=== PATIENT | female | born 1995 ===

== ENCOUNTER 2025-03-26 08:17 | Inpatient (IN) ==
--- NOTE | 2025-03-25 15:29 | Anesthesiology Consultation ---
Date of Service March 25, 2025 Assessment & Plan (1) Encounter for pre-operative examination: - Per learning technologist on 03/25/25: No known infectious disease contacts, current infectious disease symptoms in past 10 days or COVID positive test result in the past 30 days. Chart Review Chart Review: entry analyst initiated History Surgery Operation Date: 03/26/25 10:00 Proposed Procedures p Section - Sandra Day MD Height/Weight Height: 5 ft 4 in Weight: 90 kg Allergies Allergy/AdvReac Type Severity Reaction Status Date / Time bee venom protein (honey bee) Allergy Severe Anaphylaxis Verified 03/25/25 15:33 Medications Home Medications Medication Instructions Recorded Confirmed Last Taken breast pump #1 ea 03/10/25 03/25/25 Unknown alprazolam 0.5 mg tablet (Xanax) 0.5 mg PO DAILY 03/19/25 03/25/25 Unknown Magnesium Vitamin 1 tab PO HS PRN . 03/25/25 03/25/25 Unknown ferrous sulfate 325 mg (65 mg 325 mg PO DAILY 03/25/25 03/25/25 Unknown iron) tablet (iron) vit no.95-ferrous 1 tab PO DAILY 03/25/25 03/25/25 Unknown fumarate 28 mg-folic acid 800 mcg tablet () sertraline 100 mg tablet (Zoloft) 100 mg PO HS 03/25/25 03/25/25 Unknown sertraline 25 mg tablet (Zoloft) 25 mg PO HS 03/25/25 03/25/25 Unknown Past Medical History Medical History (Updated 03/25/25 @ 15:52 by Sarahi Carey PA-C) Anemia mild "during only" ADHD Hx of migraines Gestational hypertension History of PCOS History of chicken pox Depression with anxiety Past Family History Family History (Updated 03/25/25 @ 15:39 by Maria Eugenia Boone RN) Sister Crohn's disease Father Arthritis Kidney disease Other No family history of adverse response to anesthesia Denies family history of Ovarian cancer Breast cancer Colorectal cancer Past Surgical History Surgical History (Updated 03/25/25 @ 15:39 by Maria Eugenia Boone RN) [employer] teeth removed Social History Smoking Status: Never smoker Do You Dip or Chew Tobacco: No Hx Alcohol Use: No Hx Substance Use: No Physical Exam Vital Signs Last Vital Signs Temp 36.9 C 03/26/25 08:24 Pulse 86 03/26/25 09:15 Resp 20 03/26/25 08:24 BP 147/92 H 03/26/25 09:15 Lab Results Anesthesia Preop Results Results Anesthesia Widget: WBC 8.98 K/ul (4.8-10.8) 03/19/25 Hgb 11.1 g/dl (12.0-16.0) L 03/19/25 Hct 30.7 % (37.0-47.0) L 03/19/25 Plt 218 K/uL (130-400) 03/19/25 Na 135 mmol/L (136-145) L 03/19/25 K 4.0 mmol/L (3.5-5.1) 03/19/25 Cl 107 mmol/L (98-107) 03/19/25 CO2 21 mmol/L (21-32) 03/19/25 BUN 5 mg/dl (6-23) L 03/19/25 Creat 0.54 mg/dl (0.6-1.2) L 03/19/25 Glucose Level 70 mg/dl (70-99(Fasting)) 03/19/25 Blood Type O Positive 03/10/25 Antibody Screen NEGATIVE 03/10/25
[2025-03-26] MEDS: LACTATED RINGER'S 1,000 ML IV SCH ×2 (08:49→16:32)
[2025-03-26] MEDS ORDERED: GLYCOPYRROLATE 0.2 MG/ML VIAL ONE (08:52)
[2025-03-26] MEDS ORDERED: OXYTOCIN 10 UNITS/ML VIAL ONE (09:07)
[2025-03-26] MEDS ORDERED: DEXAMETHASONE SOD INJ 4 MG/ML VIAL ONE (09:07)
[2025-03-26] MEDS ORDERED: ONDANSETRON INJ 2 MG/ML 2 ML VIAL ONE (09:07)
[2025-03-26] MEDS ORDERED: MoRPHine SULFATE PF 1 MG/ML 10 ML AMP/VIAL ONE (09:08)
[2025-03-26] MEDS: ACETAMINOPHEN 500 MG TAB PO SCH (09:40)
[2025-03-26 10:28] LABS: Hematocrit (blood only) 31.7 % (37.0-47.0); Hemoglobin 11.2 g/dl (12.0-16.0); Mean Corpuscular Hemoglobin 31.1 pg (25.0-34.0); Mean Corpuscular Volume 88.1 fL (80.0-100.0); Platelet Count 198 K/uL (130-400); RDW Standard Deviation 39.7 fL (36.4-46.3); Red Blood Count 3.60 M/uL (4.20-5.40); White Blood Count 10.44 K/ul (4.8-10.8)
[2025-03-26 10:42] LABS: Alanine Aminotransferase 12.0 U/L (7-52); Albumin Globulin Ratio 1.1 (0.9-2); Alkaline Phosphatase 93.0 U/L (34-104); Anion Gap 9.0 (3-11); Bilirubin,Total 0.4 mg/dl (0.2-1.0); Blood Urea Nitrogen 8.0 mg/dl (6-23); Calcium 9.0 mg/dl (8.6-10.3); Carbon Dioxide 22.0 mmol/L (21-32); Chloride 107.0 mmol/L (98-107); Creatinine Clr Calc Pharmacy 147.8 ml/min; Globulin 2.9 gm/dl (2.5-4.0); Glucose 71.0 mg/dl (70-99(Fasting)); Potassium 4.0 mmol/L (3.5-5.1); Sodium 138.0 mmol/L (136-145); Total Protein 6.0 gm/dl (6.0-8.3)
[2025-03-26] MEDS ORDERED: LACTATED RINGER'S 1,000 ML IV SCH (10:45)
--- NOTE | 2025-03-26 10:53 | History & Physical Report ---
Date of Service March 26, 2025 Assessment & Plan (1) Breech presentation: (2) Gestational hypertension: Plan 29 yo G1 at 37 2/7 wga presents for planned primary CS for ghtn, breech Mild range BPs, had a severe that has since improved, labs wnl. Pt was very anxious, will continue to monitor Fetus cat 1 Reviewed consent for CS yesterday - Discussed indications, risks, benefits, alternatives with risks including infection, bleeding, injury to adjacent structures (bowel, bladder, ureters, blood vessels, nerves, baby), possible need for blood transfusion and/or life saving hysterectomy, VTE. Consent reviewed in detail w/ pt and signed after all questions answered to her satisfaction. 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 03/25/25 03/25/25 History ferrous sulfate 325 mg (65 mg 325 mg PO DAILY 03/25/25 03/25/25 History iron) tablet (iron) vit no.95-ferrous 1 tab PO DAILY 03/25/25 03/25/25 History fumarate 28 mg-folic acid 800 mcg tablet () sertraline 100 mg tablet (Zoloft) 100 mg PO HS 03/25/25 03/25/25 History sertraline 25 mg tablet (Zoloft) 25 mg PO HS 03/25/25 03/25/25 History Patient History Medical History (Updated 03/25/25 @ 15:52 by Sarahi Carey PA-C) Anemia mild "during only" ADHD Hx of migraines Gestational hypertension History of PCOS History of chicken pox Depression with anxiety Surgical History (Updated 03/25/25 @ 15:39 by Maria Eugenia Boone RN) [place] teeth removed Family History (Updated 03/25/25 @ 15:39 by Maria Eugenia Boone RN) Sister Crohn's disease Father Arthritis Kidney disease Other No family history of adverse response to anesthesia Denies family history of Ovarian cancer Breast cancer Colorectal cancer Social History Smoking Status: Never smoker Tobacco Type: E-cigarettes / Vaping Smoking End Date: vaping hx but quit June 2024; Second Hand Exposure: No; Do You Dip or Chew Tobacco: No; Hx Alcohol Use: No Hx Substance Use: No Preferred Language: Nepali Combining Machine Operator Required: No Beliefs That Will Affect Care: None marital status: marital status details: Ayan Austin (35) [phone] Current Living Situation: Spouse Current Living Situation Comment: lives with , 2 dogs current occupational status: employed 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 Other Information That Helps Us Care for You: No Feels Safe at Home: Yes Safety Concerns: Feels Safe At This Time Assistive Devices: None Physical Exam Genitourinary: OB Exam Abdomen: + breech (on US) OB Exam Monitor Tracing: + external FHT monitor used, + external uterine monitor used and + category I (120/mod/+accel/-decel) Results & Data Vital Signs (Past 12 Hours) Vital Signs Temp Pulse Resp BP O2 Del Method 03/26/25 10:45 93 H 03/26/25 10:45 148/95 H 03/26/25 10:35 81 03/26/25 10:35 140/89 03/26/25 10:25 94 H 03/26/25 10:25 149/91 H 03/26/25 10:16 85 03/26/25 10:16 151/92 H 03/26/25 10:07 87 03/26/25 10:07 165/97 H 03/26/25 09:55 81 03/26/25 09:55 164/103 H 03/26/25 09:46 91 H 03/26/25 09:46 171/103 H 03/26/25 09:35 95 H 03/26/25 09:35 159/106 H 03/26/25 09:26 88 03/26/25 09:26 154/101 H 03/26/25 09:15 86 03/26/25 09:15 147/92 H 03/26/25 09:06 87 03/26/25 09:06 153/96 H 03/26/25 09:00 98.4 F 20 03/26/25 09:00 98.4 F 20 Room Air 03/26/25 08:56 82 143/95 H 03/26/25 08:24 98.4 F 93 H 20 154/102 H Laboratory Results Initial OB Labs 09/10/24 Blood Type & RH Antibody Screen HCT/HGB 37.1/13.0 Platelets 268 Hep C IgG 13yrs+ Old non reactive Pap Test Chlamydia not detected Gonorrhea not detected Rubella immune RPR non-reactive Urine Culture/Screen HBsAg non reactive HIV negative MCV 87.3 Ultrasound Genetic OB Labs 10/14/24 CF negative SMA negative Panorama negative Materni T21 Quad Screen MASFP Nuchal Translucency 24-28 Week OB Labs 01/18/25 HCT/HGB 33.9/11.4 Diabetes Screen (1hr) 140 3HR GTT (if screen abnormal) 01/20/25 [id number] Antibody Screen Urine Culture/Screen Diagnostic Findings anterior plac Coding Level of Care Code None Diagnoses Breech presentation O32.1XX0 Gestational hypertension O13.9
[2025-03-26] MEDS: CITRIC ACID/SODIUM CITRATE 15 ML UDC PO SCH (10:59)
[2025-03-26 11:54] LABS: Protein Creatinine Ratio Urine 0.3 (0-0.2); Total Protein Urine Random 21.2 mg/dl (0-11.9)
[2025-03-26] MEDS ORDERED: PHENYLEPHRINE HCL 25 MG/250 ML NSS IV ONE (12:19)
--- NOTE | 2025-03-26 12:28 | Operative Report ---
Post Operative Report Pre & Post Diagnosis Operation Date: 03/26/25 10:00 Pre-Op Diagnosis: Single Intrauterine at 37 2/7 wga, Gestational Hypertension, Breech Presentation Post-Op Diagnosis: Single Intrauterine at 37 2/7 wga, Gestational Hypertension, Breech Presentation I identified the patient and participated in the time-out.: Yes Procedure Operation Date: 03/26/25 10:00 Actual Procedures p Primary Low Transverse Section - Sandra Day MD Surgeon Sandra Day MD Refrigeration Installer MD Lucille Quantitative Blood Loss (QBL) 381 Findings Consistent with Post-Op Diagnosis Normal appearing uterus, bilateral fallopian tubes and ovaries. Viable female with APGARs of 7 and 8 at 1 and 5 minutes, respectively Fluids UOP 150cc clear urine by georges catheter Specimens Placenta, cord blood Drains Georges draining clear urine Anesthesia Type Spinal Complications none Disposition Accompanied Patient To Recovery: Yes Disposition: L&D Indications 29 yo G1 at 37 2/7 wga presents for primary CS for gestational hypertension and breech presentation Description of Procedure The patient was taken to the operating room after consents were ensured. The patient was properly identified. Spinal anesthesia was obtained without difficulty. The patient was placed in a dorsal supine position with left lateral tilt, then prepped and draped in normal sterile fashion. Surgical time out was performed. Antibiotics were given for prophylaxis. Anesthesia was tested to ensure adequate surgical levels. Pfannenstiel skin incision was performed and carried down to the underlying fascia with a knife. The fascia was then nicked in the midline and extended laterally with pickups and Boyer scissors. Superior portion of the fascia was grasped with Kochers x2 and elevated off the underlying rectus muscles using blunt dissection. Inferior portion of the fascia was then grasped with Trevor clamps x2 and also elevated off the underlying muscles with blunt dissection. Midline was identified. The peritoneum was then entered and extended to provide adequate room for delivery of baby. A hand was inserted into the abdomen, uterus was noted to be clear of adhesions. Bladder blade was inserted, bladder flap was created in the usual fashion. A low transverse uterine incision was made in the uterus and extended bluntly in a superior to inferior fashion. Amniotomy was made with clear fluid at the time of rupture. feet were delivered atraumatically through the hysterotomy. breech and torso were delivered to the level of the scapula. Arms were swept across the chest atraumatically. head delivered spontaneously afterward. Nose and mouth were bulb suctioned on the surgical field. The cord was double clamped and cut, baby was handed off to awaiting pediatrics staff. Cord segment and blood were obtained. Placenta was then manually removed from the uterus. The uterus was exteriorized. Several passes were made inside the uterus to remove the remaining membranes. Attention was then turned to the hysterotomy, which was then closed with a running locked suture of 0 Vicryl on a CTX needle. An imbricating layer was then performed using 0-Monocryl. There was noted to be good hemostasis. The posterior cul-de-sac was then inspected and cleaned of clot and debris. The hysterotomy was again inspected and noted to be hemostatic. The uterus was returned to the abdomen. The right and left pericolic gutters were cleaned of all clot and debris. The hysterotomy was again noted to be hemostatic. Space of Retzius was noted to be hemostatic. The fascia was then closed with a running suture of 0 Vicryl on a CT1 needle. Subcutaneous tissue was copiously irrigated and noted to be hemostatic. Subcutaneous tissue was re-approximated using 2-0 plain gut. The skin was then closed with a running suture of 3-0 Monocryl in a subcuticular fashion. At termination of the procedure, fundal pressure was applied and a moderate amount of lochia was expressed. Pressure dressing was applied to the patient. She tolerated the procedure well. All sponge, needle, instrument counts were correct x 2. I attest to the content of the Intraoperative Record and any orders documented therein. Any exceptions are noted below. OB Procedure Charges 97994
[2025-03-26] MEDS ORDERED: BENZOCAINE 20% SPRY 85 APPLN/85 GM CAN EXT PRN (12:34)
[2025-03-26] MEDS ORDERED: HYDROCORTISONE ACETATE 25 MG SUPP PR PRN (12:34)
[2025-03-26] MEDS ORDERED: MAGNESIUM HYDROXIDE SUSP 30 ML UDC PO PRN (12:34)
[2025-03-26] MEDS ORDERED: CALCIUM CARBONATE 500 MG CHEWABLE TAB PO PRN (12:34)
[2025-03-26] MEDS ORDERED: MEPERIDINE HCL 25 MG/ML CARP/VIAL IV PRN (12:48)
[2025-03-26] MEDS ORDERED: diphenhydrAMINE 50 MG/ML VIAL IV PRN (12:48)
[2025-03-26] MEDS ORDERED: NALOXONE HCL 0.08 MG in SYRINGE 1.8 ML IV PRN (12:48)
[2025-03-26] MEDS ORDERED: ONDANSETRON INJ 2 MG/ML 2 ML VIAL IV PRN (12:48)
[2025-03-26] MEDS ORDERED: METOCLOPRAMIDE HCL 20 MG in SODIUM CHLORIDE 0.9% 50 ML IV PRN (12:48)
[2025-03-26] MEDS ORDERED: NALOXONE HCL 0.4 MG/1 ML VIAL/CARP IV PRN (12:48)
[2025-03-26] MEDS ORDERED: NALBUPHINE HCL INJ 10 MG/ML AMP IV PRN (12:48)
[2025-03-26] MEDS ORDERED: PROMETHAZINE 6.25 MG/50.25 ML BAG IV PRN (12:48)
[2025-03-26] MEDS ORDERED: HYDROmorphone INJ 0.5 MG/0.5 ML SYR IV PRN (12:48)
[2025-03-26] MEDS ORDERED: LACTATED RINGER'S 500 ML IV PRN (12:48)
[2025-03-26] MEDS ORDERED: NALOXONE HCL 1 MG in SODIUM CHLORIDE 0.9% 1,000 ML IV PRN (12:48)
--- NOTE | 2025-03-26 12:50 | Anesthesiology Progress Note ---
Date of Service March 26, 2025 Anesthesia Post Procedure Vital Signs Vital Signs: Temp Pulse Resp BP Pulse Ox O2 Del Method 03/26/25 12:46 97 03/26/25 12:46 91 H 03/26/25 12:44 82 03/26/25 12:44 158/98 H 03/26/25 12:41 98 03/26/25 12:41 83 03/26/25 12:36 98 03/26/25 12:36 88 03/26/25 12:34 100 H 03/26/25 12:34 165/103 H 03/26/25 12:31 98 03/26/25 12:31 87 03/26/25 12:26 97 03/26/25 12:26 86 03/26/25 12:24 87 03/26/25 12:24 167/100 H 03/26/25 12:21 98 03/26/25 12:21 81 03/26/25 10:55 90 03/26/25 10:55 143/97 H 03/26/25 10:45 93 H 03/26/25 10:45 148/95 H 03/26/25 10:35 81 03/26/25 10:35 140/89 03/26/25 10:25 94 H 03/26/25 10:25 149/91 H 03/26/25 10:16 85 03/26/25 10:16 151/92 H 03/26/25 10:07 87 03/26/25 10:07 165/97 H 03/26/25 09:55 81 03/26/25 09:55 164/103 H 03/26/25 09:46 91 H 03/26/25 09:46 171/103 H 03/26/25 09:35 95 H 03/26/25 09:35 159/106 H 03/26/25 09:26 88 03/26/25 09:26 154/101 H 03/26/25 09:15 86 03/26/25 09:15 147/92 H 03/26/25 09:06 87 03/26/25 09:06 153/96 H 03/26/25 09:00 36.9 C 20 03/26/25 09:00 36.9 C 20 Room Air 03/26/25 08:56 82 143/95 H 03/26/25 08:24 36.9 C 93 H 20 154/102 H Transfer of Care Handoff Completed per policy Notes Mental Status: alert / awake / arousable Patient Amnestic to Procedure: Yes Nausea / Vomiting: adequately controlled Pain: adequately controlled Airway Patency, RR, SpO2: stable & adequate BP & HR: stable & adequate Hydration State: stable & adequate Neuraxial Anesthesia: was administered and sensory block is resolving Anesthetic Complications: no major complications apparent and Pt Satisfied with anesthetic care
[2025-03-26] MEDS ORDERED: DC INTRASPINAL MORPHINE SCH (13:00)
[2025-03-26] MEDS ORDERED: NO NARCOTICS OR SEDATIVES SCH (13:00)
[2025-03-26] MEDS: KETOROLAC 30 MG/ML VIAL IV SCH (13:24)
[2025-03-26] MEDS: LABETALOL HCL IV 5 MG/ML 20ML IV STA (15:19)
[2025-03-26] MEDS: SIMETHICONE 80 MG CHEW PO SCH (15:24)
[2025-03-26] MEDS: MAGNESIUM SULFATE / WTR 40 GM/1,000 ML BAG IV SCH (15:26)
--- NOTE | 2025-03-26 15:31 | Communication Note ---
Date of Service: March 26, 2025 Nursing noted elevated bps in immediate pp period however pt had been the whole time. had pt pause , bp was severe range with persistent repeat. Labs this am were wnl except UP:C was 0.3, new from 0.2 last week. Given now persistent severe range with appropriately taken bp and up:c, would meet criteria for pre-eclampsia w/ severe features. Discussed this with patient, rec IV labetalol 20mg now and starting magnesium. Reviewed reasoning/indication, pt agreeable. Will keep georges catheter in
[2025-03-26] MEDS: DIPHTHER/TETAN/PERTUS Vaccine (Tdap, Adol/Adult) 0.5mL IM ONE (16:31)
[2025-03-26] MEDS: MoRPHine SULFATE PF 1 MG/ML 10 ML AMP/VIAL INT SPINAL ONE (16:32)
[2025-03-26] MEDS: MAG SULFATE 4GM BOLUS FROM BAG IV ONE (16:55)
[2025-03-26] MEDS ORDERED: LABETALOL HCL 200 MG TAB PO SCH ×2 (17:00→21:00)
[2025-03-26] MEDS: LABETALOL HCL 200 MG TAB PO SCH (17:20)
[2025-03-26] MEDS: SODIUM CHLORIDE 0.9% 1,000 ML IV SCH (17:32)
[2025-03-26] MEDS: LABETALOL HCL 100 MG TAB ONE (18:48)
[2025-03-26] MEDS: OXYTOCIN 20 UNITS/LR 1,002 ML IV SCH (19:01)
[2025-03-26] MEDS: ACETAMINOPHEN 325 MG TAB PO SCH (19:27)
[2025-03-26] MEDS: SERTRALINE HCL 100 MG TABLET PO SCH (20:42)
[2025-03-26] MEDS: SERTRALINE HCL 50 MG TABLET PO SCH (20:42)
[2025-03-26] MEDS: DOCUSATE SODIUM 100 MG CAP PO SCH (20:42)
[2025-03-27 06:35] LABS: Hematocrit (blood only) 28.1 % (37.0-47.0); Hemoglobin 9.8 g/dl (12.0-16.0); Mean Corpuscular Hemoglobin 30.8 pg (25.0-34.0); Mean Corpuscular Volume 88.4 fL (80.0-100.0); Platelet Count 193 K/uL (130-400); RDW Standard Deviation 39.3 fL (36.4-46.3); Red Blood Count 3.18 M/uL (4.20-5.40); White Blood Count 14.26 K/ul (4.8-10.8)
[2025-03-27] MEDS ORDERED: PROMETHAZINE 12.5 MG/50.5 ML BAG IV PRN (06:49)
[2025-03-27] MEDS ORDERED: diphenhydrAMINE Capsule 25 MG CAP PO PRN (06:49)
[2025-03-27] MEDS ORDERED: diphenhydrAMINE 50 MG/ML VIAL IV PRN (06:49)
[2025-03-27] MEDS ORDERED: HYDROmorphone INJ 0.5 MG/0.5 ML SYR IV PRN (06:49)
[2025-03-27] MEDS ORDERED: ONDANSETRON INJ 2 MG/ML 2 ML VIAL IV PRN (06:49)
[2025-03-27 06:55] LABS: Alanine Aminotransferase 12.0 U/L (7-52); Albumin Globulin Ratio 1.3 (0.9-2); Alkaline Phosphatase 82.0 U/L (34-104); Anion Gap 8.0 (3-11); Bilirubin,Total 0.3 mg/dl (0.2-1.0); Blood Urea Nitrogen 8.0 mg/dl (6-23); Calcium 7.4 mg/dl (8.6-10.3); Carbon Dioxide 24.0 mmol/L (21-32); Chloride 99.0 mmol/L (98-107); Creatinine Clr Calc Pharmacy 161.0 ml/min; Globulin 2.4 gm/dl (2.5-4.0); Glucose 81.0 mg/dl (70-99(Fasting)); Potassium 4.1 mmol/L (3.5-5.1); Sodium 131.0 mmol/L (136-145); Total Protein 5.4 gm/dl (6.0-8.3)
[2025-03-27] MEDS: PRENATAL VITAMIN 1 TAB PO SCH (07:14)
[2025-03-27] MEDS: FERROUS SULFATE 325 MG TAB PO SCH (07:14)
--- NOTE | 2025-03-27 08:06 | Obstetrical Progress Note ---
Date of Service March 27, 2025 Assessment & Plan (1) Gestational hypertension: (2) Pre-eclampsia in period: (3) examination following delivery: Plan Pt is 29 yo post- day 1 s/p CS at 37w2d. Pt was started on Mg at 1500 on 03/26 due to pre-eclampsia with severe features following CS delivery. Pt's BP has reduced to within normal range konstantin night and controlled on Mg and Labetalol 200mg. - Continue IV Mg Sulfate at 75mls/hr until 1500 - Continue mIVF LR at 125mls/hr while NPO - Continue labetalol 200mg BID as needed for BP control - Pain control with tylenol, ibuprofen and Toradol - Plan to remove georges and begin out of bed activity following completion of 24 hr of IV Mg - Close monitoring of BP's - Resume diet after 1500 - Encourage breast feeding Admission and Anticipated Discharge Date Admission Date: March 26, 2025 Supervising Physician Co-Signing Physician Notes Resident Physician Supervision Note: I interviewed and examined the patient. Discussed with Dr. Covarrubias and agree with findings and plan as documented in the note. Any exceptions or clarifications are listed here: POD1 s/p pCS c/b pre-eclampsia w/ severe features, currently on mag and labetalol 200mg po bid. VSS, exam benign and wnl, incision c/d/i. Continue mag until 24hrs complete, labetalol 200mg bid. UOP adequate Documented By: Sandra Day MD Subjective Pt is 29 yo post- day 1 s/p CS at 37w2d. Pt was started on Mg at 1500 on 03/26 due to pre-eclampsia with severe features following CS delivery. Ambulation:No Voiding:georges in place Passing gas: yes BM: no Diet tolerance: NPO until 1500 Lochia:bloody, no clots Feeding type: breast Current pain level: 5 /10 improved with Tylenol and Toradol Resting comfortably this morning in NAD. Pt reports her extremity swelling appears improved. Denies [place] OCA, CP, SOB, N/V/D, LE pain. Review of Systems Review of Systems: As per HPI Physical Exam Constitutional: WD/WN, vitals as above Respiratory: normal respiratory effort, lungs clear to auscultation Cardiovascular: Rate/Rhythm: regular rate and regular rhythm Heart Sounds: no click, no gallop and no murmur Extremities: + edema (Non pitting at bilateral ankles and hands.) Gastrointestinal (Abdomen): normal bowel sounds, soft, nontender, no hepatosplenomegaly Uterine fundus firm and at level of umbilicus Skin: Lower abdominal incision is clean, dry and well approximated. Steri strips in place. No drainage Neurologic: PERRL, EOMI, accommodation nl, no face palsy, no dysarthria Moving all 4 extremities on command Psychiatric: A+Ox3, euthymic affect Results & Data Vital Signs (Past 12 Hours) Vital Signs Temp Pulse Resp BP Pulse Ox 03/27/25 08:01 91 H 98 03/27/25 07:56 88 98 03/27/25 07:51 90 98 03/27/25 07:46 87 98 03/27/25 07:41 92 H 98 03/27/25 07:36 88 99 03/27/25 07:31 90 98 03/27/25 07:26 88 97 03/27/25 07:22 86 136/86 03/27/25 07:21 92 H 98 03/27/25 07:16 89 98 03/27/25 07:11 91 H 98 03/27/25 07:06 89 97 03/27/25 07:01 90 97 03/27/25 06:56 88 97 03/27/25 06:51 92 H 97 03/27/25 06:46 90 97 03/27/25 06:44 86 125/83 03/27/25 06:41 85 98 03/27/25 06:36 84 97 03/27/25 06:35 16 97 03/27/25 06:35 16 03/27/25 06:31 95 H 93 03/27/25 06:26 88 98 03/27/25 06:21 84 96 03/27/25 06:16 86 94 03/27/25 06:11 85 95 03/27/25 06:06 87 96 03/27/25 06:01 95 H 98 03/27/25 05:56 89 94 03/27/25 05:51 89 94 03/27/25 05:46 91 H 95 03/27/25 05:41 90 94 03/27/25 05:36 87 95 03/27/25 05:31 89 95 03/27/25 05:30 16 95 06 05:30 16 03/27/25 05:26 84 96 03/27/25 05:21 97 03/27/25 05:21 83 06 05:21 82 135/86 03/27/25 05:16 86 98 03/27/25 05:11 88 98 03/27/25 05:06 84 98 03/27/25 05:01 87 98 03/27/25 04:56 86 97 03/27/25 04:51 86 98 03/27/25 04:46 95 H 96 03/27/25 04:45 36.5 C 16 03/27/25 04:45 16 97 03/27/25 04:45 16 03/27/25 04:41 91 H 97 03/27/25 04:36 89 98 03/27/25 04:31 92 H 98 03/27/25 04:26 105 H 96 03/27/25 04:21 88 98 03/27/25 04:20 86 134/89 03/27/25 04:16 86 98 03/27/25 04:11 93 H 98 03/27/25 04:06 91 H 98 03/27/25 04:01 86 98 03/27/25 03:56 89 97 03/27/25 03:51 82 95 03/27/25 03:46 83 95 03/27/25 03:41 79 95 03/27/25 03:36 84 96 03/27/25 03:31 90 96 03/27/25 03:30 16 94 03/27/25 03:30 16 03/27/25 03:26 86 94 03/27/25 03:21 95 03/27/25 03:21 88 06 03:21 82 125/77 03/27/25 03:16 84 94 03/27/25 03:11 83 94 03/27/25 03:06 85 93 03/27/25 03:01 84 94 03/27/25 02:56 85 94 03/27/25 02:51 85 94 03/27/25 02:46 87 94 03/27/25 02:41 87 94 03/27/25 02:36 89 94 03/27/25 02:31 88 93 03/27/25 02:30 16 94 03/27/25 02:30 16 03/27/25 02:26 89 94 03/27/25 02:21 95 03/27/25 02:21 90 03/27/25 02:21 92 H 114/69 03/27/25 02:16 90 94 03/27/25 02:11 88 94 03/27/25 02:06 91 H 94 03/27/25 02:01 89 94 03/27/25 01:56 88 97 03/27/25 01:51 88 95 03/27/25 01:46 92 H 98 03/27/25 01:41 97 H 96 03/27/25 01:36 95 H 97 03/27/25 01:31 95 H 97 03/27/25 01:26 104 H 95 03/27/25 01:21 96 H 96 03/27/25 01:20 16 96 03/27/25 01:20 18 03/27/25 01:20 99 H 127/76 03/27/25 01:16 95 H 96 03/27/25 01:11 93 H 96 03/27/25 01:06 98 H 96 03/27/25 01:01 94 H 99 03/27/25 00:56 101 H 97 03/27/25 00:51 95 H 96 03/27/25 00:46 91 H 98 03/27/25 00:41 89 95 03/27/25 00:36 100 H 96 03/27/25 00:31 91 H 95 03/27/25 00:30 16 96 03/27/25 00:30 16 03/27/25 00:27 97 H 121/74 03/27/25 00:26 92 H 91 03/27/25 00:22 91 H 91 03/27/25 00:21 93 H 92 03/27/25 00:16 92 03/27/25 00:16 92 H 03/27/25 00:16 91 H 91 03/27/25 00:11 93 H 92 03/27/25 00:09 93 H 91 03/27/25 00:06 94 H 91 03/27/25 00:03 93 H 91 03/27/25 00:01 94 H 90 03/26/25 23:57 91 03/26/25 23:57 93 H 03/26/25 23:56 91 03/26/25 23:56 93 H 06/27/25 23:51 91 03/26/25 23:51 93 H 03/26/25 23:51 91 03/26/25 23:51 93 H 03/26/25 23:46 91 03/26/25 23:46 94 H 03/26/25 23:46 91 03/26/25 23:46 95 H 03/26/25 23:41 93 03/26/25 23:41 92 H 03/26/25 23:36 95 03/26/25 23:36 94 H 03/26/25 23:31 96 03/26/25 23:31 92 H 03/26/25 23:30 16 93 03/26/25 23:30 16 03/26/25 23:27 93 H 03/26/25 23:27 120/83 03/26/25 23:26 95 03/26/25 23:26 91 H 03/26/25 23:21 94 03/26/25 23:21 93 H 03/26/25 23:16 94 03/26/25 23:16 92 H 03/26/25 23:11 94 03/26/25 23:11 93 H 03/26/25 23:06 96 03/26/25 23:06 93 H 03/26/25 23:01 96 03/26/25 23:01 95 H 03/26/25 22:56 97 03/26/25 22:56 101 H 03/26/25 22:51 98 03/26/25 22:51 99 H 03/26/25 22:46 96 03/26/25 22:46 97 H 03/26/25 22:41 97 03/26/25 22:41 97 H 03/26/25 22:36 96 03/26/25 22:36 100 H 03/26/25 22:31 96 03/26/25 22:31 103 H 03/26/25 22:30 36.7 C 16 03/26/25 22:30 16 94 03/26/25 22:30 18 03/26/25 22:27 99 H 03/26/25 22:27 125/83 03/26/25 22:26 96 03/26/25 22:26 104 H 03/26/25 22:21 96 03/26/25 22:21 105 H 03/26/25 22:16 94 03/26/25 22:16 112 H 03/26/25 22:15 18 94 03/26/25 22:15 18 03/26/25 22:11 94 03/26/25 22:11 110 H 03/26/25 22:06 94 03/26/25 22:06 113 H 03/26/25 22:01 95 03/26/25 22:01 101 H 03/26/25 21:56 94 03/26/25 21:56 100 H 03/26/25 21:51 95 03/26/25 21:51 105 H 03/26/25 21:46 95 03/26/25 21:46 104 H 03/26/25 21:41 94 03/26/25 21:41 104 H 03/26/25 21:36 95 03/26/25 21:36 114 H 03/26/25 21:31 92 03/26/25 21:31 109 H 03/26/25 21:27 102 H 03/26/25 21:27 133/84 03/26/25 21:26 95 03/26/25 21:26 106 H 03/26/25 21:21 97 03/26/25 21:21 104 H 03/26/25 21:16 93 03/26/25 21:16 111 H 03/26/25 21:16 91 03/26/25 21:16 110 H 03/26/25 21:15 18 97 03/26/25 21:15 18 03/26/25 21:11 94 03/26/25 21:11 97 H 03/26/25 21:06 96 03/26/25 21:06 101 H 03/26/25 21:01 96 03/26/25 21:01 102 H 03/26/25 20:56 92 03/26/25 20:56 101 H 03/26/25 20:51 94 03/26/25 20:51 104 H 03/26/25 20:46 93 03/26/25 20:46 107 H 03/26/25 20:41 93 03/26/25 20:41 111 H 03/26/25 20:36 94 03/26/25 20:36 96 H 03/26/25 20:31 95 03/26/25 20:31 102 H 03/26/25 20:27 99 H 03/26/25 20:27 140/90 03/26/25 20:26 95 03/26/25 20:26 101 H 03/26/25 20:21 93 03/26/25 20:21 102 H 03/26/25 20:16 93 03/26/25 20:16 100 H 03/26/25 20:15 18 96 03/26/25 20:15 18 03/26/25 20:11 94 03/26/25 20:11 101 H 03/26/25 20:06 94 03/26/25 20:06 106 H Resident Activity Tracking Resident Involvement: Resident Care Provided Care Provided: Adult Hospital Medicine
[2025-03-27] MEDS: LACTATED RINGER'S 1,000 ML IV SCH (08:08)
[2025-03-27] MEDS: KETOROLAC 30 MG/ML VIAL IV PRN (14:50)
[2025-03-27] MEDS: IBUPROFEN 600 MG TAB PO SCH (14:54)
[2025-03-28] MEDS ORDERED: Nursing to Pharmacy Communication SCH
[2025-03-28] MEDS: SENNA 8.6 MG TAB PO PRN (06:40)
[2025-03-28 06:44] LABS: Hematocrit (blood only) 26.9 % (37.0-47.0); Hemoglobin 9.2 g/dl (12.0-16.0)
--- NOTE | 2025-03-28 08:13 | Obstetrical Progress Note ---
Date of Service March 28, 2025 Assessment & Plan (1) examination following delivery: POD#2 doing well. S/p 24h magnesium, BPs have been stable - taking 200mg labetalol BID - will send Rx for this. Followup in office this week for repeat BP check. Incision CDI. Reviewed postop instructions. DC home today. (2) Pre-eclampsia in period: Subjective Ambulation: ambulating normally Voiding: no voiding problems Diet Tolerance:: regular diet Lochia:: Moderate Review of Systems All systems reviewed & are unremarkable except as noted in HPI & below Physical Exam Constitutional WD/WN, vitals as above no acute distress Respiratory normal respiratory effort Cardiovascular Rate/Rhythm: regular rate and regular rhythm Gastrointestinal (Abdomen) Inspection/Auscultation: abdomen normal to inspection; abdomen not distended Percussion/Palpation: abdomen soft Genitourinary OB Exam Abdomen: + fundal height Fundus: + firm; not tender Results & Data Vital Signs (Past 12 Hours) Vital Signs Temp Pulse Resp BP Pulse Ox O2 Del Method 03/28/25 04:30 36.9 C 81 17 132/89 98 Room Air 03/27/25 23:20 37 C 82 16 127/83 97 Room Air 03/27/25 21:52 80 131/88 03/27/25 20:50 37.3 C 03/27/25 20:15 89 18 131/82 98 Room Air
[2025-03-28] MEDS: IBUPROFEN 600 MG TAB PO PRN (14:28)
[2025-03-28] MEDS: ACETAMINOPHEN 325 MG TAB PO PRN (20:53)
--- NOTE | 2025-03-29 07:37 | Obstetrical Progress Note ---
Date of Service March 29, 2025 Assessment & Plan (1) examination following delivery: POD#3 doing well. DC home today. Has office followup this week for BP check. Subjective Ambulation: ambulating normally Voiding: no voiding problems Diet Tolerance:: regular diet Lochia:: Moderate Review of Systems All systems reviewed & are unremarkable except as noted in HPI & below Physical Exam Constitutional WD/WN, vitals as above no acute distress Respiratory normal respiratory effort Cardiovascular Rate/Rhythm: regular rate and regular rhythm Gastrointestinal (Abdomen) Inspection/Auscultation: abdomen normal to inspection; abdomen not distended Percussion/Palpation: abdomen soft Genitourinary OB Exam Abdomen: + fundal height Fundus: + firm; not tender Results & Data Vital Signs (Past 12 Hours) Vital Signs Temp Pulse Resp BP Pulse Ox O2 Del Method 03/29/25 07:12 36.9 C 84 18 158/104 H 96 Room Air 03/28/25 23:26 36.6 C 86 16 128/83 97 Room Air 03/28/25 20:30 Room Air 03/28/25 20:30 37.0 C 80 20 145/97 H 99 Room Air
--- NOTE | 2025-03-29 13:10 | Communication Note ---
Date of Service: March 29, 2025 Being made aware of blood pressure elevation. she is currently asymptomatic. This am was `158/104 prior to getting dose this am. then 143/91. Was then 148 /97 and asked for pain meds. REpeat on getting meds 162/106. Plan to give 100mg labetalol now, check labs and increase to 300mg bid. I am not going to be able to d/c her today.
[2025-03-29] MEDS: LABETALOL HCL 100 MG TAB PO ONE (13:14)
[2025-03-29 14:20] LABS: Hematocrit (blood only) 30.1 % (37.0-47.0); Hemoglobin 10.1 g/dl (12.0-16.0); Mean Corpuscular Hemoglobin 30.7 pg (25.0-34.0); Mean Corpuscular Volume 91.5 fL (80.0-100.0); Platelet Count 210 K/uL (130-400); RDW Standard Deviation 42.6 fL (36.4-46.3); Red Blood Count 3.29 M/uL (4.20-5.40); White Blood Count 9.41 K/ul (4.8-10.8)
[2025-03-29 14:38] LABS: Alanine Aminotransferase 53.0 U/L (7-52); Albumin Globulin Ratio 1.3 (0.9-2); Alkaline Phosphatase 89.0 U/L (34-104); Anion Gap 8.0 (3-11); Bilirubin,Total 0.2 mg/dl (0.2-1.0); Blood Urea Nitrogen 12.0 mg/dl (6-23); Calcium 8.8 mg/dl (8.6-10.3); Carbon Dioxide 23.0 mmol/L (21-32); Chloride 107.0 mmol/L (98-107); Creatinine Clr Calc Pharmacy 145.5 ml/min; Globulin 2.6 gm/dl (2.5-4.0); Glucose 114.0 mg/dl (70-99(Fasting)); Potassium 4.1 mmol/L (3.5-5.1); Sodium 138.0 mmol/L (136-145); Total Protein 6.1 gm/dl (6.0-8.3)
--- NOTE | 2025-03-29 17:10 | Communication Note ---
Date of Service: March 29, 2025 Patient received extra 100mg labetalol and was resting when routine vitals taken and bp 171/112 and repeat 160/104. Patient denies specific sx of pet just notes she feels gross. Labs showed a slight bump in bagging salvager 0.62 and a bumping of the lfts--ast 78 (39) and alt 53 (52). This bumping of the lfts is new, have always been normal up until this point. Given this, this is a reoccurrence of her pet and I recommend she return to labor and delivery for another course of mag. She is , inderstandably, very upset by this news and scared too. Discussed if it was just bp and no change in labs, could potentially just treat bps, but with changes in labs make enough of a concern for ecclampsia and the only treatment is mag. She expresses understanding.
[2025-03-29] MEDS: MAGNESIUM SULFATE / WTR 40 GM/1,000 ML BAG IV SCH (18:22)
[2025-03-29] MEDS: MAG SULFATE 4GM BOLUS FROM BAG IV ONE (18:23)
[2025-03-29] MEDS: MAGNESIUM SULFATE 40GM / WTR 1,000 ML BAG IV ONE (18:43)
[2025-03-29] MEDS: LABETALOL HCL IV 5 MG/ML 20ML IV ONE (18:44)
[2025-03-29] MEDS: LABETALOL HCL IV 5 MG/ML 20ML IV STA (18:49)
[2025-03-29] MEDS: LABETALOL HCL 300 MG TAB PO SCH (20:53)
[2025-03-30 05:38] LABS: Hematocrit (blood only) 28.8 % (37.0-47.0); Hemoglobin 9.9 g/dl (12.0-16.0); Mean Corpuscular Hemoglobin 31.3 pg (25.0-34.0); Mean Corpuscular Volume 91.1 fL (80.0-100.0); Platelet Count 234 K/uL (130-400); RDW Standard Deviation 42.4 fL (36.4-46.3); Red Blood Count 3.16 M/uL (4.20-5.40); White Blood Count 9.06 K/ul (4.8-10.8)
[2025-03-30 05:54] LABS: Alanine Aminotransferase 75.0 U/L (7-52); Albumin Globulin Ratio 1.1 (0.9-2); Alkaline Phosphatase 91.0 U/L (34-104); Anion Gap 9.0 (3-11); Bilirubin,Total 0.4 mg/dl (0.2-1.0); Blood Urea Nitrogen 7.0 mg/dl (6-23); Calcium 7.8 mg/dl (8.6-10.3); Carbon Dioxide 23.0 mmol/L (21-32); Chloride 104.0 mmol/L (98-107); Creatinine Clr Calc Pharmacy 180.4 ml/min; Globulin 2.8 gm/dl (2.5-4.0); Glucose 81.0 mg/dl (70-99(Fasting)); Magnesium Therapeutic L&D Only 5.3 mg/dL (4.0-8.0); Potassium 3.8 mmol/L (3.5-5.1); Sodium 136.0 mmol/L (136-145); Total Protein 6.0 gm/dl (6.0-8.3)
[2025-03-30] MEDS: NIFEdipine EXTENDED REL 30 MG TABCR PO SCH (08:56)
[2025-03-31] MEDS: NIFEdipine EXTENDED REL 30 MG TABCR PO STA (06:05)
--- NOTE | 2025-03-31 07:44 | Obstetrical Progress Note ---
Date of Service March 31, 2025 Assessment & Plan (1) Pre-eclampsia in period: Severe preeclampsia, s/p Magnesium (x2) with most recent course ending at 6pm yesterday. Overnight BP elevated back into hypertensive range, mostly mild. Increased medication this morning from procardia 30xl QAM to 60xl QAM by giving extra dose around 6am. Increased medication this morning from BID to TID labetalol, first "new" dose will be given at around 11am. Patient aware that additional observation in hospital is needed to ensure she demonstrates acceptable BP control with this new regimen. AST/ALT elevated yesterday, labs pending this morning. Currently asymptomatic, other than anxiety, which has been a challenge throughout this visit and is understandable with her frustrating course. Subjective Patient comfortable in bed, no M[place] OCA, RUQ pain, edema or vision changes. Anxious about her BP and wants to be able to go home ronny. Physical Exam Gen: NAD Cor: Minimal LE edema, equal bilaterally, RRR with mild tachy overnight / currently normal. Resp: Normal rate, no distress, speech normal Abd: soft, postgravid Results & Data Vital Signs (Past 12 Hours) Vital Signs Temp Pulse Resp BP BP Pulse Ox O2 Del Method 03/31/25 06:42 153/101 H 03/31/25 05:48 158/107 H 03/31/25 05:13 154/107 H 03/31/25 04:10 166/121 H 03/31/25 03:40 91 H 16 155/105 H 99 Room Air 03/31/25 00:00 91 H 18 134/89 98 Room Air 03/30/25 20:40 98.4 F 101 H 20 142/91 H 98 Room Air Laboratory Results Abnormal Labs 03/26/25 03/26/25 03/27/25 10:05 Unknown 06:18 WBC 14.26 H RBC 3.60 L 3.18 L Hgb 11.2 L 9.8 L Hct 31.7 L 28.1 L Sodium 131 L Creatinine 0.56 L Glucose Calcium 7.4 L AST ALT Total Protein 5.4 L Albumin 3.1 L 3.0 L Globulin 2.4 L U Random Total Protein 21.2 H Protein/Creatinin Ratio 0.3 H 03/28/25 03/29/25 03/30/25 06:06 14:09 05:11 WBC RBC 3.29 L 3.16 L Hgb 9.2 L 10.1 L 9.9 L Hct 26.9 L 30.1 L 28.8 L Sodium Creatinine 0.50 L Glucose 114 H Calcium 7.8 L AST 78 H 93 H ALT 53 H 75 H Total Protein Albumin 3.2 L Globulin U Random Total Protein Protein/Creatinin Ratio
[2025-03-31 08:13] LABS: Hematocrit (blood only) 30.5 % (37.0-47.0); Hemoglobin 10.0 g/dl (12.0-16.0); Mean Corpuscular Hemoglobin 30.3 pg (25.0-34.0); Mean Corpuscular Volume 92.4 fL (80.0-100.0); Platelet Count 274 K/uL (130-400); RDW Standard Deviation 42.7 fL (36.4-46.3); Red Blood Count 3.30 M/uL (4.20-5.40); White Blood Count 9.33 K/ul (4.8-10.8)
[2025-03-31 08:33] LABS: Alanine Aminotransferase 56.0 U/L (7-52); Albumin Globulin Ratio 1.4 (0.9-2); Alkaline Phosphatase 90.0 U/L (34-104); Anion Gap 8.0 (3-11); Bilirubin,Total 0.3 mg/dl (0.2-1.0); Blood Urea Nitrogen 14.0 mg/dl (6-23); Calcium 8.0 mg/dl (8.6-10.3); Carbon Dioxide 23.0 mmol/L (21-32); Chloride 106.0 mmol/L (98-107); Creatinine Clr Calc Pharmacy 134.6 ml/min; Globulin 2.6 gm/dl (2.5-4.0); Glucose 101.0 mg/dl (70-99(Fasting)); Potassium 4.2 mmol/L (3.5-5.1); Sodium 137.0 mmol/L (136-145); Total Protein 6.2 gm/dl (6.0-8.3)
[2025-03-31] MEDS: LABETALOL HCL 300 MG TAB PO SCH (10:19)
[2025-03-31 11:04] VITALS: PULSE 96; RESP 18; TEMP 98.8; O2SAT 98
[2025-03-31 12:54] VITALS: BP 140/98
--- NOTE | 2025-04-01 06:51 | Obstetrical Progress Note ---
Date of Service March 31, 2025 Assessment & Plan Admission and Anticipated Discharge Date Admission Date: March 26, 2025 Subjective Presented to bedside to discuss plan of care. Had increased labetalol and Procardia this morning. Pressures have remained labile but mostly mild range. She is denying any preeclampsia symptoms and if she is requesting discharge. I reviewed her blood pressures with patient today and discussed that they continue to be mild range. I recommend that she prefers discharge that she continue with blood pressure medications at home and plan for a blood pressure check in clinic next week. Preeclampsia related lab abnormalities improving. Patient is agreeable to plan and will arrange discharge per her preference Results & Data Vital Signs (Past 12 Hours) Vital Signs Temp Pulse Resp BP BP Pulse Ox O2 Del Method 03/31/25 12:45 140/98 03/31/25 12:30 133/96 03/31/25 12:15 157/103 H 03/31/25 12:00 148/109 H 03/31/25 11:45 149/107 H 03/31/25 11:30 155/116 H 03/31/25 11:15 157/108 H 03/31/25 11:00 159/112 H 03/31/25 10:05 37.1 C 96 H 18 166/118 H 98 Room Air 03/31/25 06:42 153/101 H 03/31/25 05:48 158/107 H 03/31/25 05:13 154/107 H 03/31/25 04:10 166/121 H 03/31/25 03:40 91 H 16 155/105 H 99 Room Air PG Care Time/CCT Total # of Minutes Spent Total Time Spent with Patient: Total time spent is greater than 50% in coordination of care (as documented) at patient's floor/unit and/or counseling patient: Coding Level of Care Code None
[2025-04-01] MEDS ORDERED: NIFEdipine EXTENDED REL 30 MG TABCR PO SCH (09:00)
--- NOTE | 2025-04-01 15:27 | Discharge Summary ---
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 Shortly after delivery, bps were noted in severe range and dx with pre-eclampsia with severe features. She received IV anti-htn and started on magnesium. She completed 24hr course and maintained on oral labetalol 200mg po bid initially. Was planned to go home on POD3 however bps began elevating so bp meds increased to labetalol 300mg. Repeat labs demonstrated elevation in LFTs so repeated magnesium course. BP meds titrated to labetalol 300mg q8 and nifedipine 60mg/d before dc. Labs did improve prior to dc. Plan for bp check next week Coding Level of Care Code None Diagnoses examination following delivery Z39.2 Pre-eclampsia in period O14.95
== END 2025-03-31 16:15 | disposition home or self-care (01) | DRG 788 ==
LOC: 4S1 08:17 → EDSTATUS 10:00 → 4E2 03-27 18:41 → 4S1 03-29 18:13 → 4E2 03-30 19:53
DX: Z37.0 Single live birth; Z87.891 Personal history of nicotine dependence; O13.4 Gestational [pregnancy-induced] hypertension without significant proteinuria, complicating childbirth; O14.15 Severe pre-eclampsia, complicating the puerperium; O32.1XX0 Maternal care for breech presentation, not applicable or unspecified; Z3A.37 37 weeks gestation of pregnancy